=== PATIENT | female | born 1975 | race Two or more races ===

== ENCOUNTER 2022-12-04 17:25 | Emergency (ER) | payer SELFPAY ==
[~2022-12-04] VITALS: Ht 160 cm; Wt 86.2 kg
[~2022-12-04 17:25] MED LIST: ASPI-605 PO; FAMO20TA80 PO
--- NOTE | 2022-12-04 18:19 | NUR ---
TO ER 13, NO APPARENT CHANGE IN CONDITION
--- NOTE | 2022-12-04 18:20 | NUR ---
TO ER BED 13. BIB [facility] 860, SLIPPED DOWN THE LAST COUPLE STEPS/FELL BACKWARDS NO LOC. PT STATED THAT SHE HAS A HEADACHE 10/10 AND NECK PAIN. STATES THAT AFTER THE FALL SHE WA UNALBLE TO MOVE HER ARMS AND LEGS AND IS NOW ABLE. PT IS A&OX4. VITALS ARE WITHIN NORMAL LIMITS. NO RESPIRATORY DISTRESS NOTED.
--- NOTE | 2022-12-04 19:21 | NUR ---
URINE SAMPLE COLLECTED AND SENT TO LAB
--- NOTE | 2022-12-04 19:38 | NUR ---
PT SIGNED WAIVER FORM
--- NOTE | 2022-12-04 19:47 | NUR ---
PT TAKEN TO CT VIA JULIA
[2022-12-04] MEDS ORDERED: KETOROLAC TROMETHAMINE INJ 60 MG/2 ML VIAL IM ONE (20:30)
[2022-12-04] MEDS ORDERED: KETOROLAC TROMETHAMINE 15 MG/ML VIAL ONE (20:34)
[2022-12-04] MEDS ORDERED: ACETAMINOPHEN ES 500 MG TABLET ONE (20:44)
[2022-12-04] MEDS ORDERED: ACETAMINOPHEN ES 500 MG TABLET PO ONE (21:00)
--- NOTE | 2022-12-04 21:01 | NUR ---
PT IS MEDICALLY STABLE FOR D/C. Patient discharged to home in stable condition. Written and verbal after care instructions given. Patient verbalizes understanding of instruction.
[2022-12-04 21:06] VITALS: BP 145/85
== END 2022-12-04 21:07 | disposition home or self-care (01) ==
LOC: ER 17:27
DX: S00.03XA Contusion of scalp, initial encounter (principal); R51.9 Headache, unspecified; W01.0XXA Fall on same level from slipping, tripping and stumbling without subsequent striking against object, initial encounter; Y93.89 Activity, other specified; Y92.89 Other specified places as the place of occurrence of the external cause; Y99.8 Other external cause status
CPT/HCPCS: 70450-TC; 72125-TC; 84703-TC; J1885